=== PATIENT | female | born 2000 | race Two or more races ===

== ENCOUNTER → 2023-03-16 | Outpatient (CLI) | payer MEDICAID ==
[2023-03-16 12:53] LABS: BASO # 0.1 10^3/uL (0.0-0.2); BASO % 0.8 % (0.0-1.0); EOS # 0.7 10^3/uL (0.0-0.5); EOS % 9.9 % (0.0-3.0); HEMATOCRIT 41.4 % (36.0-47.0); HEMOGLOBIN 13.4 g/dl (12.0-15.5); LYMPH # 1.9 10^3/uL (1.5-5.0); LYMPH % 25.3 % (24.0-44.0); MEAN CORPUSCULAR HEMOGLOBIN 30.2 pg (27.0-33.0); MEAN CORPUSCULAR HGB CONC 32.4 g/dl (32.0-36.5); MEAN CORPUSCULAR VOLUME 93.2 fl (80.0-96.0); MONO # 0.5 10^3/uL (0.0-0.8); MONO % 7.1 % (2.0-8.0); NEUTROPHILS # 4.2 10^3/uL (1.5-8.5); NEUTROPHILS % 56.8 % (36.0-66.0); PLATELET COUNT, AUTOMATED 417 10^3/uL (150-450); RED BLOOD COUNT 4.44 10^6/uL (4.00-5.40); WHITE BLOOD COUNT 7.5 10^3/uL (4.0-10.0)
[2023-03-16 13:20] LABS: HEMOGLOBIN A1c 5.1 % (4.0-6.0)
[2023-03-16 13:24] LABS: CREATININE, URINE 212.6 MG/DL; MAU/CREAT RATIO 4.7 MCG/MG (0.0-30.0)
[2023-03-16 13:28] LABS: ALKALINE PHOSPHATASE 70 U/L (46-116); ALT/SGPT 16 U/L (7.0-40); AST/SGOT < 8 U/L (<34); BILIRUBIN,TOTAL 0.4 MG/DL (0.3-1.2); BLOOD UREA NITROGEN 9 MG/DL (9-23); CALCIUM LEVEL 9.6 MG/DL (8.5-10.1); CARBON DIOXIDE LEVEL 30 MMOL/L (20-31); CHLORIDE LEVEL 104 MMOL/L (98-107); CREATININE FOR GFR 0.66 MG/DL (0.55-1.30); GLOMERULAR FILTRATION RATE > 60.0 (>60); GLUCOSE, FASTING 85 MG/DL (60-100); POTASSIUM SERUM 4.5 MMOL/L (3.5-5.1); SODIUM LEVEL 141 MMOL/L (136-145); THYROID STIMULATING HORMONE 2.574 uIU/ML (0.55-4.78); TOTAL PROTEIN 7.1 G/DL (5.7-8.2)
== END ==
LOC: M WUC 08:21
PROVIDERS: ATTEND Family Medicine
DX: E11.9 Type 2 diabetes mellitus without complications (principal); E66.3 Overweight

== ENCOUNTER → 2023-06-15 | Outpatient (CLI) | payer MEDICAID ==
[2023-06-15 13:38] LABS: BLOOD UREA NITROGEN 9 MG/DL (9-23); CALCIUM LEVEL 9.8 MG/DL (8.5-10.1); CARBON DIOXIDE LEVEL 30 MMOL/L (20-31); CHLORIDE LEVEL 105 MMOL/L (98-107); CREATININE FOR GFR 0.73 MG/DL (0.55-1.30); GLOMERULAR FILTRATION RATE > 60.0 (>60); GLUCOSE, FASTING 93 MG/DL (60-100); POTASSIUM SERUM 4.5 MMOL/L (3.5-5.1); SODIUM LEVEL 140 MMOL/L (136-145)
[2023-06-15 13:51] LABS: HEMOGLOBIN A1c 4.9 % (4.0-6.0)
== END ==
LOC: M WUC 09:11
PROVIDERS: ATTEND Family Medicine
DX: E11.9 Type 2 diabetes mellitus without complications (principal)

== ENCOUNTER 2023-08-23 22:50 | Inpatient (IN) | payer MEDICAID ==
[~2023-08-23] VITALS: Ht 142.2 cm; Wt 53.9 kg
[~2023-08-23 22:50] MED LIST: AMOX500C PO
[2023-08-24 00:24] LABS: AMPHETAMINES LEVEL URINE NEGATIVE (NEGATIVE); BARBITURATES URINE NEGATIVE (NEGATIVE); CANNABINOIDS URINE NEGATIVE (NEGATIVE); COCAINE METABOLITE URINE NEGATIVE (NEGATIVE); METHADONE URINE NEGATIVE (NEGATIVE); OPIATES URINE NEGATIVE (NEGATIVE); PHENCYCLIDINE URINE NEGATIVE (NEGATIVE)
[2023-08-24 00:25] LABS: BENZODIAZEPINES URINE NEGATIVE (NEGATIVE)
[2023-08-24 00:26] LABS: ETHYL ALCOHOL (ETHANOL) < 0.003 % (0.000-0.010); HCG, SERUM QUALITATIVE NEGATIVE (NEGATIVE)
[2023-08-24 00:28] LABS: ALBUMIN 3.8 G/DL (3.2-5.2); ALKALINE PHOSPHATASE 65 U/L (46-116); ALT/SGPT 22 U/L (7.0-40); AST/SGOT 12 U/L (<34); BILIRUBIN,DIRECT < 0.1 MG/DL (<0.4); BILIRUBIN,TOTAL 0.3 MG/DL (0.3-1.2); BLOOD UREA NITROGEN 14 MG/DL (9-23); CALCIUM LEVEL 9.7 MG/DL (8.5-10.1); CARBON DIOXIDE LEVEL 27 MMOL/L (20-31); CHLORIDE LEVEL 110 MMOL/L (98-107); GLOMERULAR FILTRATION RATE > 60.0 (>60); GLUCOSE, FASTING 117 MG/DL (60-100); POTASSIUM SERUM 4.3 MMOL/L (3.5-5.1); SALICYLATE LEVEL < 3.0 MG/DL (<30); SODIUM LEVEL 142 MMOL/L (136-145)
[2023-08-24 00:30] LABS: THYROID STIMULATING HORMONE 3.338 uIU/ML (0.55-4.78)
[2023-08-24 00:32] LABS: HEMATOCRIT 39.9 % (36.0-47.0); HEMOGLOBIN 13.2 g/dl (12.0-15.5); MEAN CORPUSCULAR HGB CONC 33.1 g/dl (32.0-36.5); MEAN CORPUSCULAR VOLUME 90.7 fl (80.0-96.0); PLATELET COUNT, AUTOMATED 386 10^3/uL (150-450); WHITE BLOOD COUNT 8.5 10^3/uL (4.0-10.0)
[2023-08-24] MEDS ORDERED: MIRA1POW3 PO (02:55)
[2023-08-24] MEDS ORDERED: ACET-907 PO (02:55)
[2023-08-24] MEDS ORDERED: PANT40TA29 PO (02:55)
[2023-08-24] MEDS ORDERED: IBUP-1427 PO (02:55)
[2023-08-24] MEDS ORDERED: LORA-1041 PO (02:55)
[2023-08-24] MEDS ORDERED: NEOM28OI EXT (02:55)
[2023-08-24] MEDS ORDERED: PREDOPD OD (02:55)
[2023-08-24] MEDS ORDERED: DORZ10DR10 OD (02:55)
[2023-08-24] MEDS ORDERED: HOME MED LIST COMPLETE! XX SCH (03:00)
[2023-08-24] MEDS ORDERED: LORATADINE 10 MG TAB PO SCH (09:00)
[2023-08-24] MEDS ORDERED: MIRALAX *UNIT DOSE* 17GM PACKET PO SCH (09:00)
[2023-08-24] MEDS ORDERED: PANTOPRAZOLE 40MG TAB (PROTONIX) PO SCH (09:00)
[2023-08-24] MEDS ORDERED: MOM 30ML SUSPENSION UDC PO PRN (12:45)
[2023-08-24] MEDS ORDERED: IBUPROFEN 400MG TAB PO PRN (12:45)
[2023-08-24] MEDS ORDERED: MAALOX 30 ML SUSP *UDC PO PRN (12:45)
[2023-08-24] MEDS ORDERED: ACETAMINOPHEN TAB 650MG DOSE (2X325MG) PO PRN (12:45)
[2023-08-24] MEDS ORDERED: diphenhydrAMINE 25MG CAP PO PRN (12:45)
[2023-08-24] MEDS ORDERED: OLANZapine ORAL DISINTEGRATING TAB 5MG PO PRN (12:45)
[2023-08-24] MEDS ORDERED: prednisoLONE ACET 1% OPHTH SUSP 5ML OD SCH (13:00)
[2023-08-24 15:09] VITALS: BP 132/60; TEMP 97.3; O2SAT 97
[2023-08-24] MEDS: traZODone 50 MG TAB PO PRN (20:56)
[2023-08-24] MEDS: prednisoLONE ACET 1% OPHTH SUSP 5ML OD SCH (21:57)
[2023-08-25 06:30] VITALS: BP 115/54; TEMP 98.2; O2SAT 100
[2023-08-25] MEDS: COSOPT OCUMETER PLUS 10ML (DORZOLAMIDE/TIMOLOL) OD SCH ×2 (09:00→21:25)
[2023-08-25] MEDS: LORATADINE 10 MG TAB PO SCH (09:59)
[2023-08-25] MEDS: PANTOPRAZOLE 40MG TAB (PROTONIX) PO SCH (09:59)
[2023-08-25] MEDS: prednisoLONE ACET 1% OPHTH SUSP 5ML OD SCH ×3 (13:00→21:25)
[2023-08-25 18:14] VITALS: BP 103/53; TEMP 98.1
[2023-08-25] MEDS: OLANZapine 2.5MG TABLET PO SCH (21:25)
[2023-08-26 06:43] VITALS: BP 110/54; TEMP 97.5; O2SAT 96
[2023-08-26 07:22] LABS: CHOLESTEROL RISK RATIO 3.25 (<5); HDL CHOLESTEROL 43.9 MG/DL (>40); LDL CHOLESTEROL 86.3 MG/DL (<100); NON-HDL-C 99.1 MG/DL
[2023-08-26] MEDS: PANTOPRAZOLE 40MG TAB (PROTONIX) PO SCH ×2 (09:00→12:16)
[2023-08-26] MEDS: COSOPT OCUMETER PLUS 10ML (DORZOLAMIDE/TIMOLOL) OD SCH ×3 (09:00→20:56)
[2023-08-26] MEDS: LORATADINE 10 MG TAB PO SCH ×2 (09:00→12:15)
[2023-08-26] MEDS: prednisoLONE ACET 1% OPHTH SUSP 5ML OD SCH ×4 (09:00→21:09)
[2023-08-26] MEDS: OLANZapine 2.5MG TABLET PO SCH ×3 (09:00→20:56)
[2023-08-26 16:53] VITALS: BP 106/54; TEMP 98.2; O2SAT 95
[2023-08-26] MEDS: traZODone 50 MG TAB PO PRN (23:04)
[2023-08-27 06:39] VITALS: BP 102/54; TEMP 97.9; O2SAT 97
[2023-08-27] MEDS: prednisoLONE ACET 1% OPHTH SUSP 5ML OD SCH ×4 (08:55→20:30)
[2023-08-27] MEDS: OLANZapine 2.5MG TABLET PO SCH ×2 (08:55→20:30)
[2023-08-27] MEDS: PANTOPRAZOLE 40MG TAB (PROTONIX) PO SCH (08:55)
[2023-08-27] MEDS: LORATADINE 10 MG TAB PO SCH (08:55)
[2023-08-27] MEDS: COSOPT OCUMETER PLUS 10ML (DORZOLAMIDE/TIMOLOL) OD SCH ×2 (09:10→20:19)
[2023-08-27 16:34] VITALS: BP 130/66; TEMP 98; O2SAT 100
[2023-08-28] MEDS: traZODone 50 MG TAB PO PRN (00:09)
[2023-08-28 06:27] VITALS: BP 112/57; TEMP 98; O2SAT 96
[2023-08-28] MEDS: OLANZapine 2.5MG TABLET PO SCH ×2 (08:48→21:39)
[2023-08-28] MEDS: PANTOPRAZOLE 40MG TAB (PROTONIX) PO SCH (08:48)
[2023-08-28] MEDS: LORATADINE 10 MG TAB PO SCH (08:48)
[2023-08-28] MEDS: COSOPT OCUMETER PLUS 10ML (DORZOLAMIDE/TIMOLOL) OD SCH ×2 (08:49→21:25)
[2023-08-28] MEDS: prednisoLONE ACET 1% OPHTH SUSP 5ML OD SCH ×4 (10:00→21:39)
[2023-08-28 18:29] VITALS: BP 152/91; TEMP 98
[2023-08-28 20:05] VITALS: BP 136/59
[2023-08-29] MEDS: traZODone 50 MG TAB PO PRN ×2 (00:02→23:02)
[2023-08-29] MEDS ORDERED: OLANZapine ORAL DISINTEGRATING TAB 5MG PO ONE (02:00)
[2023-08-29 06:28] VITALS: BP 105/54; TEMP 98.1; O2SAT 98
[2023-08-29] MEDS: prednisoLONE ACET 1% OPHTH SUSP 5ML OD SCH ×4 (10:00→21:43)
[2023-08-29] MEDS: LORATADINE 10 MG TAB PO SCH (10:00)
[2023-08-29] MEDS: OLANZapine 2.5MG TABLET PO SCH ×2 (10:00→21:44)
[2023-08-29] MEDS: PANTOPRAZOLE 40MG TAB (PROTONIX) PO SCH (10:00)
[2023-08-29] MEDS: COSOPT OCUMETER PLUS 10ML (DORZOLAMIDE/TIMOLOL) OD SCH ×2 (11:12→21:44)
[2023-08-30 06:27] VITALS: BP 124/59; TEMP 97.4; O2SAT 95
[2023-08-30] MEDS: OLANZapine 2.5MG TABLET PO SCH ×2 (08:52→20:08)
[2023-08-30] MEDS: PANTOPRAZOLE 40MG TAB (PROTONIX) PO SCH (08:52)
[2023-08-30] MEDS: prednisoLONE ACET 1% OPHTH SUSP 5ML OD SCH ×4 (08:52→20:08)
[2023-08-30] MEDS: LORATADINE 10 MG TAB PO SCH (08:52)
[2023-08-30] MEDS: COSOPT OCUMETER PLUS 10ML (DORZOLAMIDE/TIMOLOL) OD SCH ×2 (09:10→20:08)
[2023-08-30 18:12] VITALS: BP 127/71; TEMP 98.4; O2SAT 99
[2023-08-30] MEDS: traZODone 50 MG TAB PO PRN (22:44)
[2023-08-31 06:38] VITALS: BP 113/62; TEMP 98.3; O2SAT 95
[2023-08-31] MEDS: PANTOPRAZOLE 40MG TAB (PROTONIX) PO SCH (09:15)
[2023-08-31] MEDS: OLANZapine 2.5MG TABLET PO SCH (09:15)
[2023-08-31] MEDS: COSOPT OCUMETER PLUS 10ML (DORZOLAMIDE/TIMOLOL) OD SCH (09:15)
[2023-08-31] MEDS: LORATADINE 10 MG TAB PO SCH (09:15)
[2023-08-31] MEDS: prednisoLONE ACET 1% OPHTH SUSP 5ML OD SCH (09:26)
[2023-08-31] MEDS ORDERED: OLAN2.5T25 PO (09:30)
[2023-08-31] MEDS ORDERED: TRAZ-252 PO (09:30)
[2023-08-31] MEDS ORDERED: OLAN5ZYD PO (09:30)
== END 2023-08-31 11:02 | disposition home or self-care (01) | DRG 758 ==
LOC: M ED 22:50 → M ED INP 08-24 12:44 → M PSY 08-24 15:42
PROVIDERS: ADMIT Student in an Organized Health Care Education/Training Program; ATTEND Student in an Organized Health Care Education/Training Program
DX: F63.9 Impulse disorder, unspecified (principal); R45.851 Suicidal ideations; F84.9 Pervasive developmental disorder, unspecified; H54.8 Legal blindness, as defined in USA; F43.20 Adjustment disorder, unspecified; K21.9 Gastro-esophageal reflux disease without esophagitis; Z91.52 Personal history of nonsuicidal self-harm; J30.9 Allergic rhinitis, unspecified; Z79.52 Long term (current) use of systemic steroids; Z79.899 Other long term (current) drug therapy; Z20.822 Contact with and (suspected) exposure to COVID-19

== ENCOUNTER 2023-09-19 19:55 | Inpatient (IN) | payer MEDICAID ==
[~2023-09-19] VITALS: Ht 152.4 cm; Wt 55.0 kg
[~2023-09-19 19:55] MED LIST changes: +ACET-907 PO; +DORZ10DR10 OD; +IBUP-1427 PO; +LORA-1041 PO; +MIRA1POW3 PO; +NEOM28OI EXT; +OLAN1TAB16 PO; +OLAN2.5T25 PO; +OLAN5ZYD PO; +PANT40TA29 PO; +PREDOPD OD; +TRAZ-252 PO
[2023-09-19 20:43] LABS: HEMATOCRIT 42.7 % (36.0-47.0); HEMOGLOBIN 14.1 g/dl (12.0-15.5); MEAN CORPUSCULAR HEMOGLOBIN 30.1 pg (27.0-33.0); MEAN CORPUSCULAR VOLUME 91.2 fl (80.0-96.0); PLATELET COUNT, AUTOMATED 449 10^3/uL (150-450); RED BLOOD COUNT 4.68 10^6/uL (4.00-5.40); WHITE BLOOD COUNT 9.8 10^3/uL (4.0-10.0)
[2023-09-19 21:03] LABS: ETHYL ALCOHOL (ETHANOL) < 0.003 % (0.000-0.010)
[2023-09-19 21:05] LABS: ALBUMIN 4.2 G/DL (3.2-5.2); ALKALINE PHOSPHATASE 87 U/L (46-116); ALT/SGPT 24 U/L (7.0-40); AST/SGOT 15 U/L (<34); BILIRUBIN,DIRECT 0.1 MG/DL (<0.4); BILIRUBIN,TOTAL 0.4 MG/DL (0.3-1.2); BLOOD UREA NITROGEN 11 MG/DL (9-23); CALCIUM LEVEL 9.7 MG/DL (8.5-10.1); CARBON DIOXIDE LEVEL 26 MMOL/L (20-31); CHLORIDE LEVEL 105 MMOL/L (98-107); CREATININE FOR GFR 0.76 MG/DL (0.55-1.30); GLOMERULAR FILTRATION RATE > 60.0 (>60); GLUCOSE, FASTING 99 MG/DL (60-100); POTASSIUM SERUM 4.3 MMOL/L (3.5-5.1); SALICYLATE LEVEL < 3.0 MG/DL (<30); SODIUM LEVEL 139 MMOL/L (136-145); TOTAL PROTEIN 7.9 G/DL (5.7-8.2)
[2023-09-19 21:07] LABS: THYROID STIMULATING HORMONE 2.559 uIU/ML (0.55-4.78)
[2023-09-19 21:08] LABS: HCG, SERUM QUALITATIVE NEGATIVE (NEGATIVE)
[2023-09-19 21:14] LABS: AMPHETAMINES LEVEL URINE NEGATIVE (NEGATIVE); BARBITURATES URINE NEGATIVE (NEGATIVE); BENZODIAZEPINES URINE NEGATIVE (NEGATIVE); CANNABINOIDS URINE NEGATIVE (NEGATIVE); COCAINE METABOLITE URINE NEGATIVE (NEGATIVE); METHADONE URINE NEGATIVE (NEGATIVE); OPIATES URINE NEGATIVE (NEGATIVE); PHENCYCLIDINE URINE NEGATIVE (NEGATIVE)
[2023-09-19] MEDS ORDERED: IBUPROFEN 400MG TAB PO PRN (21:25)
[2023-09-19] MEDS ORDERED: MAALOX 30 ML SUSP *UDC PO PRN (21:25)
[2023-09-19] MEDS ORDERED: diphenhydrAMINE 25MG CAP PO PRN (21:25)
[2023-09-19] MEDS ORDERED: ACETAMINOPHEN TAB 650MG DOSE (2X325MG) PO PRN (21:25)
[2023-09-19] MEDS ORDERED: MOM 30ML SUSPENSION UDC PO PRN (21:25)
[2023-09-19] MEDS ORDERED: HOME MED LIST COMPLETE! XX SCH (21:40)
[2023-09-19 22:43] VITALS: BP 115/54; TEMP 97.9; O2SAT 99
[2023-09-20 06:29] VITALS: BP 101/44; TEMP 97.2; O2SAT 97
[2023-09-20] MEDS ORDERED: NEOSPORIN TOP OINT 15GM EXT PRN (10:05)
[2023-09-20] MEDS: PANTOPRAZOLE 40MG TAB (PROTONIX) PO SCH (12:56)
[2023-09-20] MEDS: OLANZapine 2.5MG TABLET PO SCH (12:57)
[2023-09-20] MEDS: COSOPT OCUMETER PLUS 10ML (DORZOLAMIDE/TIMOLOL) OD SCH (12:57)
[2023-09-20] MEDS: FLUoxetine 20MG CAP PO SCH (12:57)
[2023-09-20] MEDS: MIRALAX *UNIT DOSE* 17GM PACKET PO SCH (12:57)
[2023-09-20] MEDS: LORATADINE 10 MG TAB PO SCH (12:57)
[2023-09-20] MEDS: prednisoLONE ACET 1% OPHTH SUSP 5ML OD SCH (13:07)
[2023-09-20] MEDS ORDERED: FLUO20CA22 PO (15:48)
[2023-09-20 18:09] VITALS: BP 103/53; TEMP 97.8; O2SAT 98
[2023-09-20] MEDS: traZODone 50 MG TAB PO PRN (20:53)
[2023-09-21 06:35] VITALS: BP 121/52; TEMP 97.5; O2SAT 96
== END 2023-09-21 12:04 | disposition home or self-care (01) | DRG 758 ==
LOC: M ED 19:55 → M ED INP 21:24 → M PSY 22:13
PROVIDERS: ADMIT Psychiatry & Neurology Psychiatry; ATTEND Student in an Organized Health Care Education/Training Program
DX: F63.9 Impulse disorder, unspecified (principal); F84.9 Pervasive developmental disorder, unspecified; F71 Moderate intellectual disabilities; H54.8 Legal blindness, as defined in USA; H91.90 Unspecified hearing loss, unspecified ear; Z79.899 Other long term (current) drug therapy

== ENCOUNTER 2023-10-12 18:25 | Inpatient (IN) | payer MEDICAID ==
[~2023-10-12 18:25] MED LIST changes: +FLUO20CA22 PO; -MIRA1POW3 PO; +MIRA33506 PO; -NEOM28OI EXT; +NEOM28OI TOP
[2023-10-12 19:02] LABS: HEMATOCRIT 38.7 % (36.0-47.0); MEAN CORPUSCULAR HEMOGLOBIN 30.6 pg (27.0-33.0); MEAN CORPUSCULAR HGB CONC 33.6 g/dl (32.0-36.5); MEAN CORPUSCULAR VOLUME 91.1 fl (80.0-96.0); PLATELET COUNT, AUTOMATED 424 10^3/uL (150-450); RED BLOOD COUNT 4.25 10^6/uL (4.00-5.40)
[2023-10-12 19:25] LABS: AMPHETAMINES LEVEL URINE NEGATIVE (NEGATIVE); BARBITURATES URINE NEGATIVE (NEGATIVE)
[2023-10-12 19:26] LABS: BENZODIAZEPINES URINE NEGATIVE (NEGATIVE); CANNABINOIDS URINE NEGATIVE (NEGATIVE); COCAINE METABOLITE URINE NEGATIVE (NEGATIVE); METHADONE URINE NEGATIVE (NEGATIVE); OPIATES URINE NEGATIVE (NEGATIVE); PHENCYCLIDINE URINE NEGATIVE (NEGATIVE)
[2023-10-12 19:29] LABS: ETHYL ALCOHOL (ETHANOL) < 0.003 % (0.000-0.010)
[2023-10-12 19:30] LABS: SALICYLATE LEVEL < 3.0 MG/DL (<30)
[2023-10-12 19:31] LABS: ALBUMIN 3.8 G/DL (3.2-5.2); ALKALINE PHOSPHATASE 83 U/L (46-116); ALT/SGPT 16 U/L (7.0-40); AST/SGOT 9 U/L (<34); BILIRUBIN,DIRECT < 0.1 MG/DL (<0.4); BILIRUBIN,TOTAL 0.3 MG/DL (0.3-1.2); BLOOD UREA NITROGEN 16 MG/DL (9-23); CALCIUM LEVEL 9.8 MG/DL (8.5-10.1); CARBON DIOXIDE LEVEL 24 MMOL/L (20-31); CHLORIDE LEVEL 107 MMOL/L (98-107); CREATININE FOR GFR 0.73 MG/DL (0.55-1.30); GLOMERULAR FILTRATION RATE > 60.0 (>60); GLUCOSE, FASTING 109 MG/DL (60-100); POTASSIUM SERUM 4.2 MMOL/L (3.5-5.1); SODIUM LEVEL 139 MMOL/L (136-145); TOTAL PROTEIN 7.2 G/DL (5.7-8.2)
[2023-10-12 19:32] LABS: THYROID STIMULATING HORMONE 2.951 uIU/ML (0.55-4.78)
[2023-10-12] MEDS ORDERED: ACETAMINOPHEN TAB 650MG DOSE (2X325MG) PO PRN (20:30)
[2023-10-12] MEDS ORDERED: IBUPROFEN 400MG TAB PO PRN (20:30)
[2023-10-12] MEDS ORDERED: MAALOX 30 ML SUSP *UDC PO PRN (20:30)
[2023-10-12] MEDS ORDERED: diphenhydrAMINE 25MG CAP PO PRN (20:30)
[2023-10-12] MEDS ORDERED: MOM 30ML SUSPENSION UDC PO PRN (20:30)
[2023-10-12] MEDS ORDERED: traZODone 50 MG TAB PO PRN (20:30)
[2023-10-12 20:52] LABS: HCG, SERUM QUALITATIVE NEGATIVE (NEGATIVE)
[2023-10-12 21:17] VITALS: BP 119/56; TEMP 96.8; O2SAT 98
[2023-10-13 06:26] VITALS: BP 131/60; TEMP 97.9; O2SAT 96
[2023-10-13] MEDS ORDERED: FLUO20CA22 PO (09:36)
[2023-10-13] MEDS ORDERED: OLAN2.5T25 PO (09:36)
[2023-10-13] MEDS ORDERED: OLAN1TAB16 PO (09:36)
[2023-10-13] MEDS ORDERED: TRAZ-252 PO (09:36)
[2023-10-13] MEDS ORDERED: HOME MED LIST COMPLETE! XX SCH (09:45)
[2023-10-13] MEDS ORDERED: OLANZapine 5 MG TAB PO PRN (10:50)
[2023-10-13] MEDS: MIRALAX *UNIT DOSE* 17GM PACKET PO SCH (11:44)
[2023-10-13] MEDS: PANTOPRAZOLE 40MG TAB (PROTONIX) PO SCH (11:44)
[2023-10-13] MEDS: OLANZapine 2.5MG TABLET PO SCH (11:45)
[2023-10-13] MEDS: LORATADINE 10 MG TAB PO SCH (11:45)
[2023-10-13] MEDS: COSOPT OCUMETER PLUS 10ML (DORZOLAMIDE/TIMOLOL) OD SCH (11:45)
[2023-10-13] MEDS: FLUoxetine 20MG CAP PO SCH (11:45)
[2023-10-13 17:15] VITALS: BP 120/60; TEMP 97.6
[2023-10-14 06:20] VITALS: BP 130/56; TEMP 98.2; O2SAT 95
[2023-10-14 17:10] VITALS: BP 131/72; TEMP 97.7; O2SAT 97
[2023-10-15 06:26] VITALS: BP 119/62; TEMP 99.1; O2SAT 96
[2023-10-18] MEDS ORDERED: TRIPOIN9 TOP (10:50)
== END 2023-10-15 13:46 | disposition home or self-care (01) | DRG 758 ==
LOC: M ED 18:25 → M ED INP 20:28 → M PSY 21:11
PROVIDERS: ADMIT Psychiatry & Neurology Psychiatry; ATTEND Student in an Organized Health Care Education/Training Program
DX: F63.9 Impulse disorder, unspecified (principal); R45.850 Homicidal ideations; R45.851 Suicidal ideations; F71 Moderate intellectual disabilities; F84.9 Pervasive developmental disorder, unspecified; H54.8 Legal blindness, as defined in USA; F43.20 Adjustment disorder, unspecified; F91.3 Oppositional defiant disorder; F90.9 Attention-deficit hyperactivity disorder, unspecified type; Z79.899 Other long term (current) drug therapy; H91.93 Unspecified hearing loss, bilateral; K21.9 Gastro-esophageal reflux disease without esophagitis; E11.9 Type 2 diabetes mellitus without complications

== ENCOUNTER 2023-10-18 19:16 | Inpatient (IN) | payer MEDICAID ==
[~2023-10-18] VITALS: Ht 152.4 cm; Wt 58.8 kg
[~2023-10-18 19:16] MED LIST changes: +TRIPOIN9 TOP
[2023-10-18 20:54] LABS: HEMATOCRIT 40.3 % (36.0-47.0); HEMOGLOBIN 13.3 g/dl (12.0-15.5); MEAN CORPUSCULAR VOLUME 90.8 fl (80.0-96.0); PLATELET COUNT, AUTOMATED 411 10^3/uL (150-450); RED BLOOD COUNT 4.44 10^6/uL (4.00-5.40); WHITE BLOOD COUNT 9.8 10^3/uL (4.0-10.0)
[2023-10-18 21:18] LABS: AMPHETAMINES LEVEL URINE NEGATIVE (NEGATIVE); BARBITURATES URINE NEGATIVE (NEGATIVE)
[2023-10-18 21:20] LABS: BENZODIAZEPINES URINE NEGATIVE (NEGATIVE); CANNABINOIDS URINE NEGATIVE (NEGATIVE); COCAINE METABOLITE URINE NEGATIVE (NEGATIVE); METHADONE URINE NEGATIVE (NEGATIVE); OPIATES URINE NEGATIVE (NEGATIVE); PHENCYCLIDINE URINE NEGATIVE (NEGATIVE)
[2023-10-18 21:22] LABS: ETHYL ALCOHOL (ETHANOL) 0.003 % (0.000-0.010); HCG, SERUM QUALITATIVE NEGATIVE (NEGATIVE)
[2023-10-18 21:23] LABS: SALICYLATE LEVEL < 3.0 MG/DL (<30)
[2023-10-18 21:24] LABS: THYROID STIMULATING HORMONE 2.052 uIU/ML (0.55-4.78)
[2023-10-18 21:26] LABS: ALBUMIN 3.8 G/DL (3.2-5.2); ALKALINE PHOSPHATASE 84 U/L (46-116); ALT/SGPT 18 U/L (7.0-40); AST/SGOT 13 U/L (<34); BILIRUBIN,DIRECT < 0.1 MG/DL (<0.4); BILIRUBIN,TOTAL 0.3 MG/DL (0.3-1.2); BLOOD UREA NITROGEN 18 MG/DL (9-23); CALCIUM LEVEL 9.1 MG/DL (8.5-10.1); CARBON DIOXIDE LEVEL 27 MMOL/L (20-31); CHLORIDE LEVEL 105 MMOL/L (98-107); CREATININE FOR GFR 0.72 MG/DL (0.55-1.30); GLOMERULAR FILTRATION RATE > 60.0 (>60); GLUCOSE, FASTING 92 MG/DL (60-100); POTASSIUM SERUM 4.3 MMOL/L (3.5-5.1); SODIUM LEVEL 139 MMOL/L (136-145); TOTAL PROTEIN 7.3 G/DL (5.7-8.2)
[2023-10-18] MEDS ORDERED: MAALOX 30 ML SUSP *UDC PO PRN (23:10)
[2023-10-18] MEDS ORDERED: traZODone 50 MG TAB PO PRN (23:10)
[2023-10-18] MEDS ORDERED: MOM 30ML SUSPENSION UDC PO PRN (23:10)
[2023-10-18] MEDS ORDERED: IBUPROFEN 400MG TAB PO PRN (23:10)
[2023-10-18] MEDS ORDERED: ACETAMINOPHEN TAB 650MG DOSE (2X325MG) PO PRN (23:10)
[2023-10-19 00:13] VITALS: BP 108/58; TEMP 97.9; O2SAT 97
[2023-10-19] MEDS ORDERED: HOME MED LIST COMPLETE! XX SCH (02:05)
[2023-10-19 06:18] VITALS: BP 113/72; TEMP 98; O2SAT 99
[2023-10-19] MEDS ORDERED: ACETAMINOPHEN TAB 650MG DOSE (2X325MG) PO PRN (08:50)
[2023-10-19] MEDS ORDERED: NEOSPORIN TOP OINT 15GM TOP PRN (08:50)
[2023-10-19] MEDS ORDERED: IBUPROFEN 200MG TAB PO PRN (08:50)
[2023-10-19] MEDS: PANTOPRAZOLE 40MG TAB (PROTONIX) PO SCH (10:05)
[2023-10-19] MEDS: FLUoxetine 20MG CAP PO SCH (10:05)
[2023-10-19] MEDS: MIRALAX *UNIT DOSE* 17GM PACKET PO SCH (10:06)
[2023-10-19] MEDS: OLANZapine 2.5MG TABLET PO SCH (10:06)
[2023-10-19] MEDS: LORATADINE 10 MG TAB PO SCH (10:06)
[2023-10-19] MEDS: COSOPT OCUMETER PLUS 10ML (DORZOLAMIDE/TIMOLOL) OD SCH (10:57)
[2023-10-19 14:30] VITALS: BP 114/66; TEMP 97.5; O2SAT 97
[2023-10-19] MEDS: IBUPROFEN 400MG TAB PO ONE (16:04)
[2023-10-20 06:42] VITALS: BP 111/58; TEMP 97.7; O2SAT 97
[2023-10-20] MEDS: OLANZapine 5 MG TAB PO PRN (13:47)
[2023-10-20 17:35] VITALS: BP 127/72; TEMP 98.4; O2SAT 97
[2023-10-21 06:21] VITALS: BP 111/63; TEMP 97.6; O2SAT 97
[2023-10-22 06:11] VITALS: BP 94/42; TEMP 98.2
[2023-10-22 14:02] VITALS: BP 134/67; TEMP 98; O2SAT 97
[2023-10-23 06:26] VITALS: BP 141/60; TEMP 97.4; O2SAT 95
[2023-10-23 15:53] VITALS: BP 114/56; TEMP 97.6; O2SAT 97
[2023-10-23] MEDS: IBUPROFEN 400MG TAB PO PRN (20:11)
[2023-10-23] MEDS: diphenhydrAMINE 25MG CAP PO PRN (21:35)
[2023-10-24 17:27] VITALS: BP 130/72; TEMP 99.2; O2SAT 95
[2023-10-25 13:47] VITALS: BP 116/59; TEMP 97.8
== END 2023-10-25 15:16 | disposition home or self-care (01) | DRG 758 ==
LOC: M ED 19:16 → M ED INP 23:10 → M PSY 23:39
PROVIDERS: ADMIT Student in an Organized Health Care Education/Training Program; ATTEND Student in an Organized Health Care Education/Training Program
DX: F63.9 Impulse disorder, unspecified (principal); F71 Moderate intellectual disabilities; F84.9 Pervasive developmental disorder, unspecified; Z91.148 Patient's other noncompliance with medication regimen for other reason; F91.3 Oppositional defiant disorder; H54.8 Legal blindness, as defined in USA; H91.93 Unspecified hearing loss, bilateral; Z79.899 Other long term (current) drug therapy; K21.9 Gastro-esophageal reflux disease without esophagitis; E11.9 Type 2 diabetes mellitus without complications

== ENCOUNTER 2023-12-11 20:50 | Inpatient (IN) | payer MEDICAID ==
[~2023-12-11] VITALS: Ht 149.9 cm; Wt 50.0 kg
[2023-12-11] MEDS ORDERED: HOME MED LIST COMPLETE! XX SCH (21:35)
[2023-12-11 22:04] LABS: HEMATOCRIT 44.2 % (36.0-47.0); HEMOGLOBIN 14.7 g/dl (12.0-15.5); MEAN CORPUSCULAR HEMOGLOBIN 29.7 pg (27.0-33.0); MEAN CORPUSCULAR HGB CONC 33.3 g/dl (32.0-36.5); MEAN CORPUSCULAR VOLUME 89.3 fl (80.0-96.0); PLATELET COUNT, AUTOMATED 379 10^3/uL (150-450); RED BLOOD COUNT 4.95 10^6/uL (4.00-5.40); WHITE BLOOD COUNT 9.7 10^3/uL (4.0-10.0)
[2023-12-11 22:27] LABS: AMPHETAMINES LEVEL URINE NEGATIVE (NEGATIVE); BARBITURATES URINE NEGATIVE (NEGATIVE); BENZODIAZEPINES URINE NEGATIVE (NEGATIVE)
[2023-12-11 22:28] LABS: CANNABINOIDS URINE NEGATIVE (NEGATIVE); COCAINE METABOLITE URINE NEGATIVE (NEGATIVE); METHADONE URINE NEGATIVE (NEGATIVE); OPIATES URINE NEGATIVE (NEGATIVE); PHENCYCLIDINE URINE NEGATIVE (NEGATIVE)
[2023-12-11 22:30] LABS: ETHYL ALCOHOL (ETHANOL) 0.003 % (0.000-0.010)
[2023-12-11 22:31] LABS: SALICYLATE LEVEL < 3.0 MG/DL (<30)
[2023-12-11 22:34] LABS: HCG, SERUM QUALITATIVE NEGATIVE (NEGATIVE)
[2023-12-11 22:39] LABS: THYROID STIMULATING HORMONE 1.775 uIU/ML (0.55-4.78)
[2023-12-11 22:41] LABS: ALBUMIN 4.2 G/DL (3.2-5.2); ALKALINE PHOSPHATASE 81 U/L (46-116); ALT/SGPT 19 U/L (7.0-40); AST/SGOT 13 U/L (<34); BILIRUBIN,DIRECT 0.1 MG/DL (<0.4); BILIRUBIN,TOTAL 0.4 MG/DL (0.3-1.2); BLOOD UREA NITROGEN 10 MG/DL (9-23); CALCIUM LEVEL 10.3 MG/DL (8.5-10.1); CARBON DIOXIDE LEVEL 24 MMOL/L (20-31); CHLORIDE LEVEL 106 MMOL/L (98-107); CREATININE FOR GFR 0.84 MG/DL (0.55-1.30); GLOMERULAR FILTRATION RATE > 60.0 (>60); GLUCOSE, FASTING 104 MG/DL (60-100); POTASSIUM SERUM 4.1 MMOL/L (3.5-5.1); SODIUM LEVEL 140 MMOL/L (136-145); TOTAL PROTEIN 7.5 G/DL (5.7-8.2)
[2023-12-11] MEDS ORDERED: MAALOX 30 ML SUSP *UDC PO PRN (23:35)
[2023-12-11] MEDS ORDERED: OLANZapine ORAL DISINTEGRATING TAB 5MG PO PRN (23:35)
[2023-12-11] MEDS ORDERED: diphenhydrAMINE 25MG CAP PO PRN (23:35)
[2023-12-11] MEDS ORDERED: IBUPROFEN 400MG TAB PO PRN (23:35)
[2023-12-11] MEDS ORDERED: MOM 30ML SUSPENSION UDC PO PRN (23:35)
[2023-12-11] MEDS ORDERED: ACETAMINOPHEN TAB 650MG DOSE (2X325MG) PO PRN (23:35)
[2023-12-12 02:09] VITALS: BP 111/58; TEMP 97.4; O2SAT 99
[2023-12-12] MEDS: MIRALAX *UNIT DOSE* 17GM PACKET PO SCH (09:00)
[2023-12-12] MEDS: COSOPT OCUMETER PLUS 10ML (DORZOLAMIDE/TIMOLOL) OD SCH (15:17)
[2023-12-12 18:12] VITALS: BP 122/62; TEMP 98.4; O2SAT 100
[2023-12-12] MEDS: PANTOPRAZOLE 40MG TAB (PROTONIX) PO SCH (20:01)
[2023-12-12] MEDS: LORATADINE 10 MG TAB PO SCH (20:01)
[2023-12-12] MEDS: traZODone 50 MG TAB PO PRN (21:47)
[2023-12-13] MEDS ORDERED: OLANZapine 5 MG TAB PO PRN (08:45)
[2023-12-13] MEDS: OLANZapine 2.5MG TABLET PO SCH (09:20)
[2023-12-13 18:22] VITALS: BP 127/76; TEMP 97.8
[2023-12-13] MEDS: FLUoxetine 20MG CAP PO SCH (20:52)
[2023-12-14 06:13] VITALS: BP 96/54; TEMP 97.2; O2SAT 95
[2023-12-14 18:35] VITALS: BP 118/62; TEMP 98
[2023-12-15 06:34] VITALS: BP 108/57; TEMP 97.4; O2SAT 98
[2023-12-15] MEDS ORDERED: FLUO20CA22 PO (13:48)
== END 2023-12-15 16:50 | disposition home or self-care (01) | DRG 758 ==
LOC: M ED 20:50 → M ED INP 23:33 → M PSY 12-12 02:05
PROVIDERS: ADMIT Student in an Organized Health Care Education/Training Program; ATTEND Student in an Organized Health Care Education/Training Program
DX: F63.9 Impulse disorder, unspecified (principal); F71 Moderate intellectual disabilities; F84.9 Pervasive developmental disorder, unspecified; Z91.148 Patient's other noncompliance with medication regimen for other reason; F60.2 Antisocial personality disorder; F90.9 Attention-deficit hyperactivity disorder, unspecified type; H54.8 Legal blindness, as defined in USA; F81.9 Developmental disorder of scholastic skills, unspecified; Z79.899 Other long term (current) drug therapy; H91.93 Unspecified hearing loss, bilateral; K21.9 Gastro-esophageal reflux disease without esophagitis

== ENCOUNTER 2024-04-23 21:10 | Emergency (ER) | payer MEDICAID ==
[~2024-04-23 21:10] MED LIST changes: +FLUO-365 PO; -FLUO20CA22 PO
[2024-04-23 21:46] LABS: HEMATOCRIT 37.6 % (36.0-47.0); HEMOGLOBIN 12.5 g/dl (12.0-15.5); MEAN CORPUSCULAR HEMOGLOBIN 30.1 pg (27.0-33.0); MEAN CORPUSCULAR HGB CONC 33.2 g/dl (32.0-36.5); MEAN CORPUSCULAR VOLUME 90.6 fl (80.0-96.0); PLATELET COUNT, AUTOMATED 409 10^3/uL (150-450); RED BLOOD COUNT 4.15 10^6/uL (4.00-5.40)
[2024-04-23 22:15] LABS: AMPHETAMINES LEVEL URINE NEGATIVE (NEGATIVE); BARBITURATES URINE NEGATIVE (NEGATIVE); BENZODIAZEPINES URINE NEGATIVE (NEGATIVE); CANNABINOIDS URINE NEGATIVE (NEGATIVE); COCAINE METABOLITE URINE NEGATIVE (NEGATIVE); METHADONE URINE NEGATIVE (NEGATIVE); OPIATES URINE NEGATIVE (NEGATIVE); PHENCYCLIDINE URINE NEGATIVE (NEGATIVE)
[2024-04-23 22:17] LABS: ETHYL ALCOHOL (ETHANOL) < 0.003 % (0.000-0.010)
[2024-04-23 22:18] LABS: SALICYLATE LEVEL < 3.0 MG/DL (<30)
[2024-04-23 22:19] LABS: ALBUMIN 3.9 G/DL (3.2-5.2); ALKALINE PHOSPHATASE 86 U/L (46-116); ALT/SGPT 21 U/L (7.0-40); AST/SGOT 9 U/L (<34); BILIRUBIN,DIRECT < 0.1 MG/DL (<0.4); BILIRUBIN,TOTAL 0.2 MG/DL (0.3-1.2); BLOOD UREA NITROGEN 17 MG/DL (9-23); CALCIUM LEVEL 9.9 MG/DL (8.5-10.1); CARBON DIOXIDE LEVEL 26 MMOL/L (20-31); CHLORIDE LEVEL 107 MMOL/L (98-107); CREATININE FOR GFR 0.84 MG/DL (0.55-1.30); GLOMERULAR FILTRATION RATE > 60.0 (>60); GLUCOSE, FASTING 103 MG/DL (60-100); POTASSIUM SERUM 4.6 MMOL/L (3.5-5.1); SODIUM LEVEL 137 MMOL/L (136-145); TOTAL PROTEIN 7.5 G/DL (5.7-8.2)
[2024-04-23 22:22] LABS: THYROID STIMULATING HORMONE 5.352 uIU/ML (0.55-4.78)
[2024-04-23] MEDS ORDERED: FLUO-96 PO (22:25)
[2024-04-23] MEDS ORDERED: OLAN2.5T25 PO (22:25)
[2024-04-23] MEDS ORDERED: TRAZ-189 PO (22:25)
[2024-04-23] MEDS ORDERED: HOME MED LIST COMPLETE! XX SCH (22:30)
[2024-04-24] MEDS ORDERED: COSOPT OCUMETER PLUS 10ML (DORZOLAMIDE/TIMOLOL) OD SCH (09:00)
[2024-04-24 09:08] VITALS: BP 108/64; TEMP 96.9; O2SAT 97
[2024-04-24] MEDS: OLANZapine 2.5MG TABLET PO SCH (09:08)
[2024-04-24] MEDS ORDERED: PANTOPRAZOLE 40MG TAB (PROTONIX) PO SCH (21:00)
[2024-04-24] MEDS ORDERED: traZODone 100 MG TAB PO SCH (21:00)
[2024-04-24] MEDS ORDERED: FLUoxetine 20MG CAP PO SCH (21:00)
[2024-04-24] MEDS ORDERED: LORATADINE 10 MG TAB PO SCH (21:00)
== END 2024-04-24 10:44 | disposition home or self-care (01) ==
LOC: M ED 21:10
DX: F32.A Depression, unspecified (principal); E11.9 Type 2 diabetes mellitus without complications; K21.9 Gastro-esophageal reflux disease without esophagitis; F60.3 Borderline personality disorder; F79 Unspecified intellectual disabilities; Z79.899 Other long term (current) drug therapy

== ENCOUNTER → 2024-11-27 | Outpatient (CLI) | payer MEDICAID ==
[~2024-11-27] MED LIST changes: +FLUO-96 PO; -OLAN2.5T25 PO; +OLAN2.5T53 PO; +TRAZ-189 PO
[2024-11-27 12:58] LABS: BASO % 0.1 % (0.0-1.0); EOS % 0.3 % (0.0-3.0); HEMATOCRIT 39.5 % (36.0-47.0); HEMOGLOBIN 12.5 g/dl (12.0-15.5); LYMPH # 2.3 10^3/uL (1.5-5.0); LYMPH % 32.4 % (24.0-44.0); MEAN CORPUSCULAR HEMOGLOBIN 28.4 pg (27.0-33.0); MEAN CORPUSCULAR HGB CONC 31.6 g/dl (32.0-36.5); MEAN CORPUSCULAR VOLUME 89.8 fl (80.0-96.0); MONO # 0.6 10^3/uL (0.0-0.8); NEUTROPHILS # 4.1 10^3/uL (1.5-8.5); NEUTROPHILS % 59.1 % (36.0-66.0); PLATELET COUNT, AUTOMATED 377 10^3/uL (150-450)
[2024-11-27 13:24] LABS: ALBUMIN 3.6 G/DL (3.2-5.2); ALKALINE PHOSPHATASE 70 U/L (35-104); ALT/SGPT 17 U/L (7.0-40); AST/SGOT 10 U/L (<34); BILIRUBIN,TOTAL 0.2 MG/DL (0.3-1.2); BLOOD UREA NITROGEN 16 MG/DL (9-23); CALCIUM LEVEL 9.4 MG/DL (8.5-10.1); CARBON DIOXIDE LEVEL 30 MMOL/L (20-31); CHLORIDE LEVEL 104 MMOL/L (98-107); CHOLESTEROL LEVEL 148 MG/DL (<200); CHOLESTEROL RISK RATIO 2.93 (<5); CREATININE FOR GFR 0.73 MG/DL (0.55-1.30); GLOMERULAR FILTRATION RATE > 90.0 (>60); GLUCOSE, FASTING 89 MG/DL (60-100); HDL CHOLESTEROL 50.4 MG/DL (>40); NON-HDL-C 97.6 MG/DL; POTASSIUM SERUM 4.1 MMOL/L (3.5-5.1); SODIUM LEVEL 141 MMOL/L (136-145); TRIGLYCERIDES LEVEL 128 MG/DL (<150)
[2024-11-27 13:27] LABS: FREE T4 1.07 NG/DL (0.89-1.76); THYROID STIMULATING HORMONE 3.128 uIU/ML (0.55-4.78)
[2024-11-27 13:28] LABS: TOTAL 25(OH) VITAMIN D 40.8 NG/ML (20.0-100.0)
[2024-11-27 13:30] LABS: HEMOGLOBIN A1c 5.3 % (4.0-6.0)
== END ==
LOC: M WUC 08:59
DX: E11.9 Type 2 diabetes mellitus without complications (principal); K21.00 Gastro-esophageal reflux disease with esophagitis, without bleeding; F60.3 Borderline personality disorder; E78.5 Hyperlipidemia, unspecified; F43.25 Adjustment disorder with mixed disturbance of emotions and conduct; Z79.899 Other long term (current) drug therapy

== ENCOUNTER → 2025-05-21 | Outpatient (CLI) | payer MEDICAID ==
[2025-05-21 12:45] LABS: ALT/SGPT 18 U/L (7.0-40); AST/SGOT 17 U/L (<34); CALCIUM LEVEL 9.1 MG/DL (8.5-10.1); CARBON DIOXIDE LEVEL 26 MMOL/L (20-31); CHLORIDE LEVEL 108 MMOL/L (98-107); CHOLESTEROL LEVEL 206 MG/DL (<200); CHOLESTEROL RISK RATIO 3.95 (<5); CREATININE FOR GFR 0.79 MG/DL (0.55-1.30); GLOMERULAR FILTRATION RATE > 90.0 (>60); LDL CHOLESTEROL 123.1 MG/DL (<100); NON-HDL-C 153.9 MG/DL; POTASSIUM SERUM 4.4 MMOL/L (3.5-5.1); SODIUM LEVEL 144 MMOL/L (136-145); TOTAL 25(OH) VITAMIN D 33.1 NG/ML (20.0-100.0); TRIGLYCERIDES LEVEL 154 MG/DL (<150)
[2025-05-21 12:47] LABS: FREE T4 1.23 NG/DL (0.89-1.76)
[2025-05-21 13:04] LABS: BASO # 0.0 10^3/uL (0.0-0.2); BASO % 0.2 % (0.0-1.0); EOS # 0.0 10^3/uL (0.0-0.5); EOS % 0.4 % (0.0-3.0); LYMPH # 1.5 10^3/uL (1.5-5.0); LYMPH % 30.2 % (24.0-44.0); MONO # 0.5 10^3/uL (0.0-0.8); MONO % 9.1 % (2.0-8.0); NEUTROPHILS # 3.0 10^3/uL (1.5-8.5); NEUTROPHILS % 59.9 % (36.0-66.0); PLATELET COUNT, AUTOMATED 442 10^3/uL (150-450)
== END ==
LOC: M WUC 09:51
DX: E11.9 Type 2 diabetes mellitus without complications (principal); K21.00 Gastro-esophageal reflux disease with esophagitis, without bleeding; F60.3 Borderline personality disorder; F43.25 Adjustment disorder with mixed disturbance of emotions and conduct; Z79.899 Other long term (current) drug therapy; E78.5 Hyperlipidemia, unspecified